=== PATIENT | female | born 1970 | race Caucasian/White ===

== ENCOUNTER 2016-07-26 16:59 | Emergency (ER) | payer OTHER ==
[~2016-07-26] VITALS: Ht 157.5 cm; Wt 104.5 kg
[2016-07-26 17:00] VITALS: BP 136/81; PULSE 74; RESP 16; O2SAT 98
[2016-07-26] MEDS ORDERED: CETI10CA PO (17:05)
--- NOTE | 2016-07-26 18:13 | ED.REPORT ---
HPI-Extremity Problem Lower Date of Service Jul 26, 2016 ED Provider: Jessica Valenzuela MD Patient is a 46 year old female who presents to the ED complaining of intermittent severe right walls pain following trauma nearly 3 weeks ago. The patient states that she walked into her closet and hit her right walls against a plastic bin. The patient stepped on the edge and scraped her entire walls against it. Patient brought pictures of her leg 5 days after the trauma which show diffuse ecchymosis over the entire leg. The bruising is now resolved with an exception of a small patch on the back of her leg. Patient reports using ice and Naproxen for her symptoms. Patient reports intermittent pain in this leg, which she describes as a sharp twinge. She can also feel a knot under her skin in this area. Patient denies chest pain, shortness of breath, fever, chills, numbness or weakness in her legs. The patient denies a history of a blood clotting disorder. Nursing Notes Stated Complaint: SHARP LEG PAIN Chief Complaint: Extremity Trauma Nursing Notes Reviewed: Yes Allergies: Coded Allergies: baclofen (Verified Allergy, Intermediate, hives, 07/26/16) Scheduled Cephalexin (Keflex) 500 Mg Capsule 500 MG PO QID Cetirizine HCl (Zyrtec) 10 Mg Capsule 10 MG PO BID General Time Seen by MD: 18:10 Chief Complaint Leg injury right Hx Obtained From: Patient Arrived By: Walk-in Onset Occurred: More than a week ago... (3 weeks) Symptom Duration: Since onset Location: : Leg right Quality: Painful Severity: Current: No pain currently Severity: Maximum: Moderate Recent Healthcare: No recent doctor visit, No recent hospitalization Similar Sx Previous: No Past Medical History Past Medical History healthy, no daily medications Past Surgical History none reported Smoking History Unknown if Ever Smoker Social History Other Social History: Good social support, Local resident Ambulatory Status Independent Review of Systems Constitutional: Denies: Chills, Fever Musculoskeletal: Reports: Extremity pain, Extremity swelling Neurologic: Denies: Numbness, Weakness Complete sys rev & neg: except as marked. Respiratory: Denies: Shortness of breath Cardiovascular: Denies: Chest pain Physical Exam Initial Vital Signs Vital Signs (First) Date Time Temp Pulse Resp B/P Pulse Ox O2 Delivery O2 Flow Rate FiO2 07/26/16 17:00 36.6 74 16 136/81 98 Room Air Initial VS: Reviewed Head / Eyes: Atraumatic, Normocephalic, PERRL ENT: Conjunctiva normal, No scleral icterus Neck: Supple, Full range of motion Upper Extremities: Vascular intact, Neuro intact, No swelling Skin: Warm, Dry, No cyanosis Neurologic: Alert, Oriented, Nonfocal Psychiatric: Mood/affect normal, Behavior normal, Normal thought content Lower Extremity / Pelvis / MS: Neurologic intact, Vascular intact Right Leg / Calf: Positive: R calf > L calf Right calf: 1+ pitting edema with superficial abrasions Good capillary refill. Intact DP and PT pulses. 5/5 motor strength and intact sensation. Leg is shiny and taut. Ankle / Foot: Neurologic intact, Vascular intact General/Constitutional: Awake, Alert Appearance / Presentation: Positive: Obese Respiratory / Chest: Breath sounds NL, Breath sounds = bilat, No respiratory distress, No rales, No rhonchi, No wheezing Cardiovascular: Heart rate NL, Regular rhythm, Heart sounds NL, No murmurs Interpretation & Diagnostics US VENOUS DUPLEX FINDINGS: The deep veins are normally compressible, and free of intraluminal thrombus. Color and pulse Doppler demonstrate normal phasic intraluminal flow. There is normal augmentation response to distal compression maneuver. Edema and subcutaneous fluid collection likely representing hematoma noted in the region of the right ankle corresponds to the a of lower extremity redness and swelling. IMPRESSION: No evidence of deep vein thrombosis involving the right lower extremity. Dictated by: Sharon Rizzo MD, PhD on 07/26/2016 at 19:46 Approved by: Sharon Rizzo MD, PhD on 07/26/2016 at 19:47 Lab Results Interpretation Result Diagram: 07/26/16 19307/26/161930 Test 07/26/16 19:31 White Blood Count 7.0th/mm3 (3.8-10.1) Red Blood Count 4.78mil/mm3 (3.90-5.20) Hemoglobin 13.0g/dL (12.0-15.6) Hematocrit 40.0% (35.0-46.0) Mean Corpuscular Volume 83.7fL (81-100) Mean Corpuscular Hemoglobin 27.2pg (27.0-35.0) Mean Corpuscular Hemoglobin Concent 32.5% (32.0-37.0) Red Cell Distribution Width 13.5% (12.3-15.4) Platelet Count 264bil/L (150-400) Neutrophils (%) (Auto) 56.1% (40-74) Lymphocytes (%) (Auto) 32.9% (14-46) Monocytes (%) (Auto) 6.5% (4-12) Eosinophils (%) (Auto) 3.9% (0-5) Basophils (%) (Auto) 0.3% (0-3) Prothrombin Time 9.6sec (8.1-12.5) Prothromb Time International Ratio 0.90ratio Sodium Level 139mEq/L (134-144) Potassium Level 4.0mEq/L (3.5-5.2) Chloride Level 102mEq/L (97-108) Carbon Dioxide Level 23mmol/L (18-29) Blood Urea Nitrogen 16mg/dL (6-24) Creatinine 0.64mg/dL (0.57-1.00) Estimat Glomerular Filtration Rate 142mL/min (>59) Glucose Level 89mg/dL (60-99) Calcium Level 9.0mg/dL (8.5-10.1) Total Bilirubin 0.8mg/dL (0.0-1.2) Aspartate Amino Transf (AST/SGOT) 18U/L (0-50) Alanine Aminotransferase (ALT/SGPT) 21U/L (0-32) Alkaline Phosphatase 85U/L (25-150) Total Protein 7.2g/dL (6.4-8.4) Albumin 4.2g/dL (3.4-5.0) Hold Lees Top Tube Received (Received) X-Ray Interpretation Xray Interpretation: IMPRESSION: No fracture. No osseous lesion. If there are persistent symptoms or clinical suspicion for pathology, then repeat radiographs or advanced imaging (CT, MRI or bone scan) should be considered for further evaluation. Dictated by: Sharon Rizzo MD, PhD on 07/26/2016 at 18:13 Approved by: Sharon Rizzo MD, PhD on 07/26/2016 at 18:14 X-Ray Ordered: Tibia fibula right Interpretation / Wet Read by: Interpret - Radiologist Re-Eval/Medical Decision Med Decision/Clinical Course 46-year-old female with past medical history of obesity here with right lower extremity edema, pain, slight redness. Differential diagnosis includes but is not limited to DVT versus cellulitis versus resolving hematoma versus bleeding diaphysis. CBC and CMP, and coags are all normal. The patient's ultrasound does not show any evidence of DVT. While I feel it is a soft call, I am giving her Keflex for possible cellulitis of her low lower extremity. It is quite possible that this is all just sequela of trauma 3 weeks ago. She will follow- up with her primary care physician and has been given very strict return precautions. Source of Hx: Old records Re-Evaluation/Progress : Time of Eval: 20:09 Patient Status: Condition improved Re-Evaluation/Progress Note: Rechecked the patient. Her labs were normal. Discussed the results of her x-ray and US. Patient understands and agrees with the plan to be discharged home. Discharge instructions and follow-up discussed. All questions were addressed. Return to the ED warnings given. Counseled Regarding: Diagnosis, Lab results, Need for follow-up, When/why to return to ED Discharge & Departure Impression: Primary Impression: Cellulitis of right lower extremity Disposition: Home Discharge Condition All VS Reviewed: Yes Condition: Stable Patient Instructions: Cellulitis (ED) Additional Instructions: The x-ray of your leg today was normal. The ultrasound did not show signs of a blood clot. You will be treated with Keflex, an antibiotics, as it is concerning that you are developing an infection. Return to the Emergency Department if you develop increased swelling or pain of your leg, fever, shortness of breath, or any other new or concerning symptoms. Your blood pressure was elevated in the Emergency Department today. You should follow-up with your primary care physician about your blood pressure, as you may need to be started on blood pressure medication. Referrals: Nathanael Frazier MD (PCP) Davidibadrián Attestation Portions of this note were transcribed by Cece Nicole. I, Dr. Valenzuela personally performed the history, physical exam and medical decision-making; I reviewed and confirmed the accuracy of the information in the transcribed note. Signed by: Mike Yun, 07/26/20162015 copies to: Nathanael Frazier MD, Rebecca A MD Jul 26, 2016 18:13 Cece Nicole Jul 26, 2016 18:29
--- NOTE | 2016-07-26 18:15 | DRSVH ---
PROCEDURE: X-RAY RIGHT TIBIA/FIBULA, TWO VIEWS ([id number]) INDICATIONS: trauma , fall TECHNIQUE: 2 views of the tibia and fibula were acquired. COMPARISON: None. FINDINGS: Bones: No fractures or dislocations. No suspicious bony lesions. Soft tissues: No suspicious soft tissue calcifications or masses. IMPRESSION: No fracture. No osseous lesion. If there are persistent symptoms or clinical suspicion f or pathology, then repeat radiographs or advanced imaging (CT, MRI or bone scan) should be considered for further evaluation. Dictated by: Sharon Rizzo MD, PhD on 07/26/2016 at 18:13 Approved by: Sharon Rizzo MD, PhD on 07/26/2016 at 18:14
[2016-07-26 19:35] LABS: BASOPHILS % (AUTO) 0.3 % (0-3); EOSINOPHILS % (AUTO) 3.9 % (0-5); MONOCYTES % (AUTO) 6.5 % (4-12); Mean Corpuscular Hemoglobin 27.2 pg (27.0-35.0); Mean Corpuscular Volume 83.7 fL (81-100); NEUTROPHILS % (AUTO) 56.1 % (40-74); Platelet Count 264 bil/L (150-400)
--- NOTE | 2016-07-26 19:49 | DRSVH ---
PROCEDURE: US VEINOUS LEG DUPLEX UNILATERAL, RIGHT INDICATIONS: leg swelling TECHNIQUE: Real-time imaging, as well as color and pulse Doppler interrogation, were performed of the lower extr emity deep veins from the inguinal ligament to the popliteal fossa. COMPARISON: None. FINDINGS: The deep veins are normally compressible, and free of intraluminal thrombus. Color and pu lse Doppler demonstrate normal phasic intraluminal flow. There is normal augmentation response to di stal compression maneuver. Edema and subcutaneous fluid collection likely representing hematoma noted in the region of the right ankle corresponds to the a of lower extremity redness and swelling. IMPRESSION: No evidence of deep vein thrombosis involving the right lower extremity. Dictated by: Sharon Rizzo MD, PhD on 07/26/2016 at 19:46 Approved by: Sharon Rizzo MD, PhD on 07/26/2016 at 19:47
[2016-07-26 19:51] LABS: INR 0.9 ratio
[2016-07-26] MEDS ORDERED: CEPH-512 PO (20:12)
[2016-07-26 20:28] VITALS: BP 134/76; PULSE 71; RESP 16; O2SAT 98
== END 2016-07-26 20:31 | disposition home or self-care (01) ==
LOC: SED 16:59
DX: L03.115 Cellulitis of right lower limb (principal); W22.09XA Striking against other stationary object, initial encounter; Y93.01 Activity, walking, marching and hiking; Y92.009 Unspecified place in unspecified non-institutional (private) residence as the place of occurrence of the external cause; Y99.8 Other external cause status; Z88.8 Allergy status to other drugs, medicaments and biological substances